=== PATIENT | female | born 1980 | race Caucasian/White ===

== ENCOUNTER 2017-12-02 03:48 | Emergency (ER) | payer BC, OTHER ==
[2017-12-02] MEDS ORDERED: NS 1000 ML 1,000 ML ONE (04:00)
[2017-12-02 04:01] VITALS: BMI 37.5
--- NOTE | 2017-12-02 04:03 | DR.GENAD ---
HPI - PCP Primary Care Physician: dr gray - HPI Comment HPI Comment: PATIENT IS WEAK, FATIGUE AND IS PERSISTENT COUGHING WITH CHEST WALL PAIN. FEVER ON AND OFF. TAKING TYLENOL AND MOTRIN FOR BODY ACHES AND FEVER. SHE IS NAUSEATED AND ANOREXIC. - Complaint/Symptoms Chief Complaint Doctors Comments: COUGH, COLD AND CONGESTION WITH FEVER AND BODYACHE THAT IS WORSE TONIGHT. DYSURIA ALSO. Chief Complaint:: patient stated she has been having body aches, cough and burning when she urinates, and fever - Nurses notes reviewed Nurses Notes Review: Yes - Source History Provided: Patient - Mode of Arrival Mode of Arrival: Ambulatory - Timing Onset of Chief Complaint: 12/01/17 Came on: Suddenly - Duration Duration: Constant Duration: Days - Severity Severity: Moderate PMH - PMH Past Medical History: Yes Past Medical History: Depression, Migraines Past Surgical History: Yes Surgical History: , Cholecystectomy, Tonsillectomy - Family History History of Family Medical Conditions: No - Social History Does patient currently use any type of tobacco product: Yes Have you used tobacco products in the last 12 months: Yes Type of Tobacco Use: Cigarettes How many years tobacco product used: 5 Does any household member use tobacco: Yes Alcohol Use: Rarely Do you use any recreational Drugs:: No Lives With: Family Lives Where: Home - infectious screening In the last 2 months have you had wt loss of >10#?: NO Have you had fever, night sweats or hemotysis?: No Have you traveled outside the country in the last 6 months?: No Isolation: Standard ROS - Review of Systems Constitutional: No Symptoms Reported Eyes: No Symptoms Reported ENTM: No Symptoms Reported Respiratoy: No Symptoms Reported Cardiovascular: No Symptoms Reported Gastrointestinal/Abdominal: Abdominal Pain, Nausea, Vomiting Genitourinary: No Symptoms Reported. negative: Dysuria, Frequency, Hematuria Neurological: Headache, Weakness, Dizziness Musculoskeletal: Muscle Pain Integumentary: No Symptoms Reported Hematologic/Lymphatic: No Symptoms Reported Endocrine: No Symptoms Reported All Other Systems: Reviewed and Negative PE - Vital Signs Vitals: Temperature 98.3 F Pulse Rate [Left Radial] 72 Pulse Rate 84 Respiratory Rate 18 Blood Pressure [Left Arm] 126/80 Blood Pressure 133/83 O2 Sat by Pulse Oximetry 99 - General Limitations: No Limitations General Appearance: Alert - Head Head Exam: Normal Inspection - Eyes Eye exam: Normal Appearance - ENT ENT Exam: Normal External Ear Exam External Ear Exam: Normal External Inspection TM/Canal Exam: Bilateral Normal Nose Exam: Normal Nose Exam Mouth Exam: Normal Inspection Throat Exam: Normal Inspection - Neck Neck Exam: Trachea Midline - Chest Chest Inspection: Symmetric Chest Wall Rise - Respiratory Respiratory Exam: Normal Lung Sounds Bilat Respiratory Exam: Bilateral Rhonchi, Lower Rhonchi - Cardiovascular Cardiovascular Exam: Regular Rate, Normal Rhythm, Normal Heart Sounds - Abdominal Exam Abdominal Exam: Normal Bowel Sounds, Soft. negative: Tenderness - Extremities Extremities Exam: Normal Inspection. negative: Edema - Back Back Exam: Normal Inspection - Neurologic Neurological Exam: Alert, Oriented X3 - Psychiatric Psychiatric Exam: Anxious - Skin Skin Exam: Normal Color MDM - Differential Diagnosis Differential Diagnosis: INFLUENZA, PNEMONIA, UTI, BRONCHITIS Course - Treatment Treatment: SEE ORDERS. - Education/Counseling Education/Counseling: Patient, Education Educated On: Treatment, Diagnosis, Needs for Follow Up ROR - Labs Reviewed Result Diagrams: 12/02/17 04:20 12/02/17 04:20 Laboratory: WBC 8.3 X10^3/uL (3.6-10.0) 12/02/17 04:20 RBC 5.03 X10^6/uL (3.5-5.4) 12/02/17 04:20 Hgb 13.5 g/dL (12.0-16.0) 12/02/17 04:20 Hct 39.0 % (36.0-47.0) 12/02/17 04:20 MCV 77.5 fL (80.0-100.0) L 12/02/17 04:20 MCH 26.8 pg (27.0-34.0) L 12/02/17 04:20 MCHC 34.5 g/dL (33.0-35.0) 12/02/17 04:20 RDW 12.7 % (11.6-16.5) 12/02/17 04:20 Plt Count 374 X10^3/uL (150.0-450.0) 12/02/17 04:20 MPV 8.4 fL (7.4-11.0) 12/02/17 04:20 Neut % 74.8 % (42.0-75.0) 12/02/17 04:20 Lymph % 12.4 % (21.0-51.0) L 12/02/17 04:20 [place] % 8.5 % (0.0-13.0) 12/02/17 04:20 Eos % 1.4 % (0.9-2.9) 12/02/17 04:20 Baso % 2.9 % (0.2-1.0) H 12/02/17 04:20 Neut # 6.2 x10^3/uL (2.2-4.8) H 12/02/17 04:20 Lymph # 1.0 X10^3/uL (1.3-2.9) L 12/02/17 04:20 [place] # 0.7 x10^3/uL (0.3-0.8) 12/02/17 04:20 Eos # 0.1 x10^3/uL (0.0-0.2) 12/02/17 04:20 Baso # 0.2 X10^3/uL (0.0-0.1) H 12/02/17 04:20 Absolute Nucleated RBC 0.0 /100WBC 12/02/17 04:20 Sodium 137 mmol/L (136-145) 12/02/17 04:20 Corrected Sodium TNP 12/02/17 04:20 Potassium 4.4 mmol/L (3.5-5.1) 12/02/17 04:20 Chloride 102 mmol/L (98-107) 12/02/17 04:20 Carbon Dioxide 22.5 mmol/L (21-32) 12/02/17 04:20 BUN 9 mg/dL (7-18) 12/02/17 04:20 Creatinine 0.76 mg/dL (0.55-1.02) 12/02/17 04:20 Est GFR (MDRD) Af Amer > 60 (>60) 12/02/17 04:20 Est GFR (MDRD) Non-Af > 60 (>60) 12/02/17 04:20 Glucose 108 mg/dL (65-99) H 12/02/17 04:20 Calcium 8.6 mg/dL (8.5-10.1) 12/02/17 04:20 Corrected Calcium TNP 12/02/17 04:20 Total Bilirubin 0.40 mg/dL (0.2-1.0) 12/02/17 04:20 AST 16 Units/L (15-37) 12/02/17 04:20 ALT 24 Units/L (12-78) 12/02/17 04:20 Alkaline Phosphatase 88 Units/L (46-116) 12/02/17 04:20 C-Reactive Protein 29.90 mg/L (0-3.0) H 12/02/17 04:20 Total Protein 7.1 g/dL (6.4-8.2) 12/02/17 04:20 Albumin 3.7 g/dL (3.4-5.0) 12/02/17 04:20 Globulin 3.4 g/dL (2.5-4.5) 12/02/17 04:20 Albumin/Globulin Ratio 1.1 Ratio (1.1-2.1) 12/02/17 04:20 Specimen Type Clean catch urine 12/02/17 04:12 Urine Color Yellow (YELLOW) 12/02/17 04:12 Urine Appearance Hazy (CLEAR) 12/02/17 04:12 Urine pH 8.0 (5.0 - 8.0) 12/02/17 04:12 Ur Specific Dexter 1.015 (1.000-1.030) 12/02/17 04:12 Urine Protein Negative (NEGATIVE) 12/02/17 04:12 Urine Glucose (UA) Negative (NEGATIVE) 12/02/17 04:12 Urine Ketones Negative (NEGATIVE) 12/02/17 04:12 Urine Occult Blood 3+ (NEGATIVE) 12/02/17 04:12 Urine Nitrite Negative (NEGATIVE) 12/02/17 04:12 Urine Bilirubin Negative (NEGATIVE) 12/02/17 04:12 Urine Urobilinogen Normal (NORMAL) 12/02/17 04:12 Ur Leukocyte Esterase 2+ (NEGATIVE) 12/02/17 04:12 Urine RBC 2-4 /HPF (NEGATIVE) 12/02/17 04:12 Urine WBC 10-15 /HPF (NEGATIVE) 12/02/17 04:12 Ur Squamous Epith Cells Few /HPF (NEGATIVE) 12/02/17 04:12 Urine Bacteria 1+ /HPF (NEGATIVE) 12/02/17 04:12 Ur Culture Indicated? Yes/culture set up 12/02/17 04:12 - Diagnosis Discharge Problem: Bronchitis, Flu, Sinusitis - Discharge Plan Condition: Stable Prescriptions: Doxycycline Hyclate 100 mg PO BID #20 tablet. Oseltamivir Phosphate [Tamiflu] 75 mg PO BID #10 cap Promethazine W/Codeine [PHENERGAN W/CODEINE 6.25mg/10mg (5mL) *] 10 ml PO Q6H PRN #120 ml PRN Reason: Cough - Follow ups/Referrals Follow ups/Referrals: RINA TEJADA [Primary Care Provider] - 3 days - Instructions Instructions: Influenza, Adult, [id number], Acute Bronchitis, [id number], Sinus Headache, [id number] Additional Instructions: RETURN TO ED IF WORSE.
[2017-12-02] MEDS ORDERED: NS 1000 ML 1,000 ML IV ONE (04:10)
[2017-12-02 04:17] LABS: BILIRUBIN,URINE NEGATIVE (NEGATIVE); BLOOD/HEMOGLOBIN,URINE 3+ (NEGATIVE); GLUCOSE, URINE NEGATIVE (NEGATIVE); KETONES,URINE NEGATIVE (NEGATIVE); LEUKOCYTE ESTERASE ,URINE 2+ (NEGATIVE); NITRITES,URINE NEGATIVE (NEGATIVE); PROTEIN,URINE NEGATIVE (NEGATIVE); UROBILINOGEN,URINE NORMAL (NORMAL)
[2017-12-02] MEDS ORDERED: ZOFRAN INJ 4 MG VIAL IVP ONE (04:17)
[2017-12-02] MEDS ORDERED: TORADOL 30 MG VIAL IVP ONE (04:17)
[2017-12-02] MEDS ORDERED: PEPCID 20 MG IV PREMIX* 20 MG/50 ML BAG IV ONE ×2 (04:17→04:22)
[2017-12-02] MEDS ORDERED: PHENERGAN W/CODEINE 6.25MG/10MG PO ONE (04:20)
[2017-12-02] MEDS ORDERED: ZOFRAN INJ 4 MG VIAL ONE (04:22)
[2017-12-02] MEDS ORDERED: TORADOL 30 MG VIAL ONE (04:22)
[2017-12-02] MEDS ORDERED: PHENERGAN W/CODEINE 6.25MG/10MG ONE (04:23)
[2017-12-02 04:32] LABS: BASOPHILS # (AUTO) 0.2 X10^3/uL (0.0-0.1); BASOPHILS % (AUTO) 2.9 % (0.2-1.0); EOSINOPHILS # (AUTO) 0.1 x10^3/uL (0.0-0.2); EOSINOPHILS % (AUTO) 1.4 % (0.9-2.9); HEMOGLOBIN 13.5 g/dL (12.0-16.0); LYMPHOCYTES % (AUTO) 12.4 % (21.0-51.0); MEAN CORPUSCULAR HEMOGLOBIN 26.8 pg (27.0-34.0); MEAN CORPUSCULAR HGB CONC 34.5 g/dL (33.0-35.0); MEAN CORPUSCULAR VOLUME 77.5 fL (80.0-100.0); MEAN PLATELET VOLUME 8.4 fL (7.4-11.0); MONOCYTES # (AUTO) 0.7 x10^3/uL (0.3-0.8); MONOCYTES % (AUTO) 8.5 % (0.0-13.0); NEUTROPHILS # (AUTO) 6.2 x10^3/uL (2.2-4.8); NEUTROPHILS % (AUTO) 74.8 % (42.0-75.0); PLATELET COUNT 374 X10^3/uL (150.0-450.0); RED BLOOD COUNT 5.03 X10^6/uL (3.5-5.4); RED CELL DISTRIBUTION WIDTH 12.7 % (11.6-16.5); WHITE BLOOD COUNT 8.3 X10^3/uL (3.6-10.0)
[2017-12-02 04:35] LABS: APPEARANCE,URINE HAZY (CLEAR); COLOR,URINE YELLOW (YELLOW); SQUAMOUS EPITHELIAL CELL,UR FEW /HPF (NEGATIVE)
[2017-12-02 04:36] LABS: BACTERIA,URINE 1+ /HPF (NEGATIVE)
[2017-12-02 04:37] LABS: ALANINE AMINOTRANSFERASE 24 Units/L (12-78); ALBUMIN 3.7 g/dL (3.4-5.0); ALKALINE PHOSPHATASE 88 Units/L (46-116); ASPARTATE AMINO TRANSFERASE 16 Units/L (15-37); BLOOD UREA NITROGEN 9 mg/dL (7-18); CALCIUM 8.6 mg/dL (8.5-10.1); CARBON DIOXIDE 22.5 mmol/L (21-32); CHLORIDE 102 mmol/L (98-107); CREATININE 0.76 mg/dL (0.55-1.02); SODIUM 137 mmol/L (136-145); TOTAL PROTEIN 7.1 g/dL (6.4-8.2); eGFR BLACK RACES > 60 (>60); eGFR NON BLACK RACES > 60 (>60)
--- NOTE | 2017-12-02 05:35 | RAD ---
Chest, PA and lateral Indication: Fever, body aches Comparison: 10/19/2012 Findings: The cardiac silhouette is unremarkable. The lungs are clear without focal infiltrates or pl eural effusion. Impression: No acute chest process. Reported By:
[2017-12-02 05:54] VITALS: BP 126/80
== END 2017-12-02 05:51 | disposition home or self-care (01) ==
LOC: ER 03:48
DX: J11.1 Influenza due to unidentified influenza virus with other respiratory manifestations (principal); J32.9 Chronic sinusitis, unspecified
CPT/HCPCS: 36415; 71046; 80053; 81001; 85025; 86140; 87086; 96365; 96374; 96375; 99282; 99283; A4222; S0028; J1885; J2405

== ENCOUNTER 2017-12-05 12:05 | Inpatient (IN) ==
--- NOTE | 2017-12-05 12:50 | DR.H&P ---
H&P - History & Physical for Day of: H&P Date: 12/05/17 - Chief Complaint Chief Complaint: FEVER, CCC, BODY ACHES - Allergies Allergies/Adverse Reactions: Allergies Allergy/AdvReac Type Severity Reaction Status Date / Time No Known Drug Allergies Allergy Verified 12/02/17 04:06 - History of Present Illness History of Present Illness: 37 WF DIRECT ADMIT FROM DR PERALES OFFICE WITH CO FLU LIKE ILLNESS FOR 3 DAYS, PT STATES SHE WAS SEEN IN ER EARLIER THIS WEEK, STARTED ON DOXY BID. PT CONTINUES TO CO FEVER, BODYACHES SHORTNESS OF BREATH. PT TESTED POSTIVE FLU A. PLAN TO ADMIT FOR EVLAUATION AND TREATMENT OF RESP ILLNESS. PLAN TO OBTAIN ATBX, RESP THERAPY, SUPPLEMENTAL O2 - Past Medical History Past Medical History: Depression, Migraines - Past Surgical History Surgical History: , Cholecystectomy, Tonsillectomy - Social History Does patient currently use any type of tobacco product: Yes Have you used tobacco products in the last 12 months: Yes Type of Tobacco Use: Cigarettes Does any household member use tobacco: No Alcohol Use: None Drug Use: None - Review of Systems Constitutional: Fever, Chills, Weakness, Malaise Eyes: No Symptoms Reported ENT: No Symptoms Reported Respiratory: Cough, Shortness of Breath, Wheezing Cardiovascular: No Symptoms Reported Gastrointestinal: No Symptoms Reported Genitourinary: No Symptoms Reported Musculoskeletal: No Symptoms Reported Skin: No Symptoms Reported Neurological: No Symptoms Reported - Physical Exam Vital Signs: Blood Pressure [Left Arm] 126/80 Blood Pressure 126/80 Oriented: Normal Eyes: Normal Ear: Normal Nose: Normal Throat: Normal Respiratory: Rhonchi Throughout, Wheezes Throughout Cardiovascular: Tachycardia, Edema : Normal Auscultation: Bowel Sounds: Normal Palpation: Normal Tenderness: Normal Skin: Normal Musculoskeletal: Normal Psychiatric: Anxiety Mood Description: Calm Affect: Anxious Speech Pattern: Clear, Appropriate - Assessment/Plan (1) Bronchitis Status: Acute Plan: ADMIT, RESP THERAPY, IV ABTX. BLOOD AND SPUTUM CULTURES, SUPPLEMENTAL O2. CHEST XRAY, TAMIFLU (2) Flu Status: Acute
[2017-12-05] MEDS ORDERED: NS 1/2 1000 ML IV 1,000 ML IV ONE (14:32)
[2017-12-05] MEDS ORDERED: SALINE 3% 15 ML NEB TX NEB ONE (14:46)
[2017-12-05] MEDS: ROBITUSSIN DM PO SCH ×3 (14:50→20:31)
[2017-12-05] MEDS: NS 1/2 1000 ML IV 1,000 ML IV SCH (14:51)
[2017-12-05] MEDS: SOLU-Medrol 125 MG VIAL IVP SCH ×2 (14:51→21:07)
[2017-12-05 15:02] LABS: BASOPHILS # (AUTO) 0.1 X10^3/uL (0.0-0.1); EOSINOPHILS # (AUTO) 0.2 x10^3/uL (0.0-0.2); EOSINOPHILS % (AUTO) 2.7 % (0.9-2.9); HEMATOCRIT 37.9 % (36.0-47.0); HEMOGLOBIN 12.9 g/dL (12.0-16.0); LYMPHOCYTES # (AUTO) 2.9 X10^3/uL (1.3-2.9); LYMPHOCYTES % (AUTO) 50.9 % (21.0-51.0); MEAN CORPUSCULAR HEMOGLOBIN 26.4 pg (27.0-34.0); MEAN CORPUSCULAR HGB CONC 34.1 g/dL (33.0-35.0); MEAN CORPUSCULAR VOLUME 77.6 fL (80.0-100.0); MEAN PLATELET VOLUME 8.2 fL (7.4-11.0); MONOCYTES # (AUTO) 0.5 x10^3/uL (0.3-0.8); MONOCYTES % (AUTO) 8.1 % (0.0-13.0); NEUTROPHILS # (AUTO) 2.2 x10^3/uL (2.2-4.8); NEUTROPHILS % (AUTO) 37.3 % (42.0-75.0); PLATELET COUNT 369 X10^3/uL (150.0-450.0); RED BLOOD COUNT 4.89 X10^6/uL (3.5-5.4); WHITE BLOOD COUNT 5.8 X10^3/uL (3.6-10.0)
[2017-12-05 15:16] LABS: ALANINE AMINOTRANSFERASE 62 Units/L (12-78); ALBUMIN 3.4 g/dL (3.4-5.0); ALKALINE PHOSPHATASE 86 Units/L (46-116); ASPARTATE AMINO TRANSFERASE 24 Units/L (15-37); BLOOD UREA NITROGEN 9 mg/dL (7-18); CALCIUM 8.7 mg/dL (8.5-10.1); CARBON DIOXIDE 25.4 mmol/L (21-32); CHLORIDE 105 mmol/L (98-107); CREATININE 0.69 mg/dL (0.55-1.02); SODIUM 141 mmol/L (136-145); TOTAL PROTEIN 7.1 g/dL (6.4-8.2); eGFR NON BLACK RACES > 60 (>60)
[2017-12-05] MEDS ORDERED: PREVNAR 13 IM ONE (15:31)
[2017-12-05] MEDS: ROCEPHIN VIAL 1 GRAM 1 G in NS 100 ML IV + SPIKE MINIBAG* 100 ML IV SCH (15:35)
--- NOTE | 2017-12-05 15:51 | RAD ---
Examination: Chest, PA and lateral views History: Irregular heart rate Comparison reference 12/02/2017 Findings: Continued normal heart size with clear lungs and pleural spaces. There is a metallic electr onic device projected over the left anterior chest wall. Impression: No significant change or acute abnormality demonstrated. Reported By:
[2017-12-05] MEDS: ZITHROMAX INJ 500 MG VIAL 500 MG in NS 250 ML IV 250 ML IV SCH (16:22)
[2017-12-05] MEDS: DUONEB 0.5 MG/3 MG NEB SCH ×2 (16:24→20:26)
[2017-12-05] MEDS: TORADOL 30 MG VIAL IVP SCH (19:32)
[2017-12-05] MEDS: TAMIFLU PO SCH (20:32)
[2017-12-05] MEDS: PULMICORT NEB TX 0.5 MG NEB SCH (20:32)
[2017-12-05] MEDS: RESTORIL CAP 30 MG PO PRN (21:24)
[2017-12-05] MEDS: TUSSIONEX PENNKINETIC SUSP PO PRN (21:24)
[2017-12-06] MEDS: DUONEB 0.5 MG/3 MG NEB SCH ×6 (01:42→20:49)
[2017-12-06] MEDS: TORADOL 30 MG VIAL IVP SCH ×2 (01:45→08:42)
[2017-12-06] MEDS: SOLU-Medrol 125 MG VIAL IVP SCH ×3 (05:19→21:05)
[2017-12-06] MEDS: NS 1/2 1000 ML IV 1,000 ML IV SCH ×3 (05:19→18:19)
[2017-12-06 05:20] LABS: BASOPHILS % (AUTO) 0.1 % (0.2-1.0); HEMATOCRIT 37.4 % (36.0-47.0); HEMOGLOBIN 12.7 g/dL (12.0-16.0); LYMPHOCYTES # (AUTO) 1.1 X10^3/uL (1.3-2.9); LYMPHOCYTES % (AUTO) 12.6 % (21.0-51.0); MEAN CORPUSCULAR HEMOGLOBIN 26.7 pg (27.0-34.0); MEAN CORPUSCULAR HGB CONC 33.9 g/dL (33.0-35.0); MEAN CORPUSCULAR VOLUME 78.8 fL (80.0-100.0); MEAN PLATELET VOLUME 8.6 fL (7.4-11.0); MONOCYTES # (AUTO) 0.1 x10^3/uL (0.3-0.8); MONOCYTES % (AUTO) 1.5 % (0.0-13.0); NEUTROPHILS # (AUTO) 7.3 x10^3/uL (2.2-4.8); NEUTROPHILS % (AUTO) 85.8 % (42.0-75.0); PLATELET COUNT 350 X10^3/uL (150.0-450.0); RED BLOOD COUNT 4.74 X10^6/uL (3.5-5.4); RED CELL DISTRIBUTION WIDTH 12.7 % (11.6-16.5); WHITE BLOOD COUNT 8.5 X10^3/uL (3.6-10.0)
[2017-12-06 05:32] LABS: ALANINE AMINOTRANSFERASE 51 Units/L (12-78); ALBUMIN 3.2 g/dL (3.4-5.0); ALKALINE PHOSPHATASE 88 Units/L (46-116); ASPARTATE AMINO TRANSFERASE 13 Units/L (15-37); BLOOD UREA NITROGEN 7 mg/dL (7-18); CALCIUM 8.7 mg/dL (8.5-10.1); CARBON DIOXIDE 16.4 mmol/L (21-32); CHLORIDE 105 mmol/L (98-107); COR CA(FOR HYPOALB) 9.3 mg/dL (8.5-10.1); COR NA(FOR HYPERGLY) 142 mmol/L (136-145); CREATININE 0.92 mg/dL (0.55-1.02); SODIUM 138 mmol/L (136-145); eGFR NON BLACK RACES > 60 (>60)
[2017-12-06] MEDS: PULMICORT NEB TX 0.5 MG NEB SCH ×2 (08:26→20:49)
[2017-12-06] MEDS: ROCEPHIN VIAL 1 GRAM 1 G in NS 100 ML IV + SPIKE MINIBAG* 100 ML IV SCH (08:40)
[2017-12-06] MEDS: ZITHROMAX INJ 500 MG VIAL 500 MG in NS 250 ML IV 250 ML IV SCH (08:41)
[2017-12-06] MEDS: TAMIFLU PO SCH ×2 (08:43→20:57)
[2017-12-06] MEDS: ROBITUSSIN DM PO SCH ×4 (08:43→20:57)
[2017-12-06 10:06] VITALS: BMI 39.4
[2017-12-06] MEDS: TUSSIONEX PENNKINETIC SUSP PO PRN ×2 (10:25→20:58)
[2017-12-06] MEDS: TORADOL 30 MG VIAL IVP PRN ×2 (15:04→20:57)
[2017-12-06] MEDS ORDERED: NS 1/2 1000 ML IV 1,000 ML IV ONE (15:06)
[2017-12-06] MEDS ORDERED: PHENERGAN TAB 25 MG PO PRN (18:13)
[2017-12-06] MEDS ORDERED: PATIENT'S HOME MEDICATION (Cholecalciferol (Vitamin D3) [Vitamin D3] 5,000 UNIT) PO SCH (18:15)
--- NOTE | 2017-12-06 20:18 | PCM.PROG ---
Progress Note - Progress Note for Day of Date: 12/06/17 - Subjective Subjective: WAS ADMITTED FOR ACUTE BRONCHITIS AND INFLUENZA. TODAY, SHE IS ALERT AND ORIENTED, LYING IN BED ON MORNING ROUNDS. TODAY, SHE CONTINUES WITH SHORTNESS OF BREATH, GENERALIZED ACHING, AND PERSISTANT COUGH. ON EXAMINATION, HEART IS REGULAR IN RATE AND RHYTHM. LUNG SOUNDS ARE DIMINISHED THROUGHOUT. SHE IS UTILIZING OXYGEN VIA NASAL CANNULA AT 2L/MIN. ABODOMEN IS ROUND, SOFT, AND NON-TENDER WITH NORMAL BOWEL SOUNDS NOTED TO ALL QUADRANTS. THERE IS NORMAL RANGE OF MOTION NOTED TO ALL EXTREMITIES. VITAL SIGNS THIS MORNING ARE 97.3-90-20-98%-159/74. SHE REMAINS HEMODYNAMICALLY STABLE TODAY. TODAY, WE WILL CONTINUE WITH IV ANTIBIOTICS AND TAMIFLU BID. WE WILL CONTINUE TO HYDRATE. WE PLAN TO FOLLOW UP WITH AM LABS AND CHEST XRAY AND CONTINUE TO MONITOR PATIENT. - Past Medical Family Social History Past Med/Fam/Surg Hx: No changes since H&P Allergies: Allergies No Known Drug Allergies Allergy (Verified 12/02/17 04:06) - Review of Systems ROS: No change since H&P - Vital Signs and I&O's Vital Signs: Temperature 97.5 F Pulse Rate [Left Brachial] 87 Pulse Rate 77 Respiratory Rate 20 Blood Pressure [Left Arm] 116/55 Blood Pressure 126/80 O2 Sat by Pulse Oximetry 96 Intake and Output: Intake & Output 12/04/17 12/05/17 12/06/17 12/07/17 11:59 11:59 11:59 11:59 Intake Total 835 990 Output Total 900 Balance -65 990 - Physical Exam Oriented: Normal Eyes: Normal Ear: Normal Nose: Normal Throat: Normal Respiratory: Generalized, Diminished Cardiovascular: Edema : Normal Auscultation: Bowel Sounds: Normal Palpation: Normal Tenderness: Normal Skin: Normal Musculoskeletal: Normal Psychiatric: Anxiety Mood Description: Calm Affect: Anxious Speech Pattern: Clear, Appropriate - Laboratory and Diagnostics Result Diagrams: 12/06/17 04:40 12/06/17 04:40 Labs: 12/05/17 16:01 Sputum - Expectorated Sputum Sputum Culture - Preliminary 12/05/17 16:01 Sputum - Expectorated Sputum - Final Laboratory WBC 8.5 X10^3/uL (3.6-10.0) 12/06/17 04:40 RBC 4.74 X10^6/uL (3.5-5.4) 12/06/17 04:40 Hgb 12.7 g/dL (12.0-16.0) 12/06/17 04:40 Hct 37.4 % (36.0-47.0) 12/06/17 04:40 MCV 78.8 fL (80.0-100.0) L 12/06/17 04:40 MCH 26.7 pg (27.0-34.0) L 12/06/17 04:40 MCHC 33.9 g/dL (33.0-35.0) 12/06/17 04:40 RDW 12.7 % (11.6-16.5) 12/06/17 04:40 Plt Count 350 X10^3/uL (150.0-450.0) 12/06/17 04:40 MPV 8.6 fL (7.4-11.0) 12/06/17 04:40 Neut % 85.8 % (42.0-75.0) H 12/06/17 04:40 Lymph % 12.6 % (21.0-51.0) L 12/06/17 04:40 [place] % 1.5 % (0.0-13.0) 12/06/17 04:40 Eos % 0.0 % (0.9-2.9) L 12/06/17 04:40 Baso % 0.1 % (0.2-1.0) L 12/06/17 04:40 Neut # 7.3 x10^3/uL (2.2-4.8) H 12/06/17 04:40 Lymph # 1.1 X10^3/uL (1.3-2.9) L 12/06/17 04:40 [place] # 0.1 x10^3/uL (0.3-0.8) L 12/06/17 04:40 Eos # 0.0 x10^3/uL (0.0-0.2) 12/06/17 04:40 Baso # 0.0 X10^3/uL (0.0-0.1) 12/06/17 04:40 Absolute Nucleated RBC 0.0 /100WBC 12/06/17 04:40 Sodium 138 mmol/L (136-145) 12/06/17 04:40 Corrected Sodium 142 mmol/L (136-145) 12/06/17 04:40 Potassium 4.0 mmol/L (3.5-5.1) 12/06/17 04:40 Chloride 105 mmol/L (98-107) 12/06/17 04:40 Carbon Dioxide 16.4 mmol/L (21-32) L 12/06/17 04:40 BUN 7 mg/dL (7-18) 12/06/17 04:40 Creatinine 0.92 mg/dL (0.55-1.02) 12/06/17 04:40 Est GFR (MDRD) Af Amer > 60 (>60) 12/06/17 04:40 Est GFR (MDRD) Non-Af > 60 (>60) 12/06/17 04:40 Glucose 256 mg/dL (65-99) H 12/06/17 04:40 Calcium 8.7 mg/dL (8.5-10.1) 12/06/17 04:40 Corrected Calcium 9.3 mg/dL (8.5-10.1) 12/06/17 04:40 Total Bilirubin 0.20 mg/dL (0.2-1.0) 12/06/17 04:40 AST 13 Units/L (15-37) L 12/06/17 04:40 ALT 51 Units/L (12-78) 12/06/17 04:40 Alkaline Phosphatase 88 Units/L (46-116) 12/06/17 04:40 Total Protein 7.0 g/dL (6.4-8.2) 12/06/17 04:40 Albumin 3.2 g/dL (3.4-5.0) L 12/06/17 04:40 Globulin 3.8 g/dL (2.5-4.5) 12/06/17 04:40 Albumin/Globulin Ratio 0.8 Ratio (1.1-2.1) L 12/06/17 04:40 - Plan (1) Bronchitis Status: Acute Plan: CONTINUE IV ANTIBIOTICS AND NEB TX, CONTINUE TO MONITOR LABS AND CHEST XAY (2) Flu Status: Acute Plan: CONTINUE TAMIFLU BID, CONTINUE TO MONITOR
[2017-12-06] MEDS: INDERAL TAB 10 MG PO SCH (20:56)
[2017-12-06] MEDS: LYRICA CAP 100 MG PO SCH (20:56)
[2017-12-06] MEDS: CYMBALTA PO SCH (20:57)
[2017-12-06] MEDS: RESTORIL CAP 30 MG PO PRN (20:57)
[2017-12-06] MEDS ORDERED: PROPRANOLOL HCL PO SCH (21:00)
[2017-12-07] MEDS: DUONEB 0.5 MG/3 MG NEB SCH ×5 (01:29→20:31)
[2017-12-07] MEDS: TORADOL 30 MG VIAL IVP PRN ×4 (02:43→23:00)
[2017-12-07] MEDS: SOLU-Medrol 125 MG VIAL IVP SCH ×3 (05:46→21:52)
[2017-12-07 06:44] LABS: BASOPHILS % (AUTO) 0.2 % (0.2-1.0); HEMATOCRIT 37.2 % (36.0-47.0); HEMOGLOBIN 12.3 g/dL (12.0-16.0); LYMPHOCYTES # (AUTO) 2.5 X10^3/uL (1.3-2.9); MEAN CORPUSCULAR HEMOGLOBIN 25.9 pg (27.0-34.0); MEAN CORPUSCULAR HGB CONC 32.9 g/dL (33.0-35.0); MEAN CORPUSCULAR VOLUME 78.7 fL (80.0-100.0); MONOCYTES # (AUTO) 0.5 x10^3/uL (0.3-0.8); MONOCYTES % (AUTO) 2.5 % (0.0-13.0); NEUTROPHILS # (AUTO) 17.7 x10^3/uL (2.2-4.8); NEUTROPHILS % (AUTO) 85.3 % (42.0-75.0); PLATELET COUNT 419 X10^3/uL (150.0-450.0); RED BLOOD COUNT 4.73 X10^6/uL (3.5-5.4); RED CELL DISTRIBUTION WIDTH 13.2 % (11.6-16.5); WHITE BLOOD COUNT 20.7 X10^3/uL (3.6-10.0)
[2017-12-07 06:56] LABS: ALANINE AMINOTRANSFERASE 42 Units/L (12-78); ALBUMIN 3.2 g/dL (3.4-5.0); ALKALINE PHOSPHATASE 81 Units/L (46-116); ASPARTATE AMINO TRANSFERASE 10 Units/L (15-37); BLOOD UREA NITROGEN 10 mg/dL (7-18); CALCIUM 8.3 mg/dL (8.5-10.1); CARBON DIOXIDE 18.9 mmol/L (21-32); CHLORIDE 104 mmol/L (98-107); COR CA(FOR HYPOALB) 8.9 mg/dL (8.5-10.1); COR NA(FOR HYPERGLY) 139 mmol/L (136-145); CREATININE 0.74 mg/dL (0.55-1.02); SODIUM 137 mmol/L (136-145); eGFR NON BLACK RACES > 60 (>60)
[2017-12-07 07:03] LABS: HEMOGLOBIN A1C 5.8 % (4.5-6.2)
[2017-12-07 08:01] LABS: PLATELET MORPHOLOGY COMMENT NORMAL (NORMAL)
[2017-12-07] MEDS: PULMICORT NEB TX 0.5 MG NEB SCH ×2 (09:25→20:30)
[2017-12-07] MEDS ORDERED: NS 1/2 1000 ML IV 1,000 ML IV ONE (09:29)
[2017-12-07] MEDS: INDERAL TAB 10 MG PO SCH ×2 (09:32→21:52)
[2017-12-07] MEDS: LYRICA CAP 100 MG PO SCH ×2 (09:32→21:52)
[2017-12-07] MEDS: TAMIFLU PO SCH ×2 (09:32→21:52)
[2017-12-07] MEDS: ROCEPHIN VIAL 1 GRAM 1 G in NS 100 ML IV + SPIKE MINIBAG* 100 ML IV SCH (09:33)
[2017-12-07] MEDS: ZITHROMAX INJ 500 MG VIAL 500 MG in NS 250 ML IV 250 ML IV SCH (09:33)
[2017-12-07] MEDS: NS 1/2 1000 ML IV 1,000 ML IV SCH ×2 (09:34→22:59)
[2017-12-07] MEDS: ROBITUSSIN DM PO SCH ×4 (09:35→21:53)
[2017-12-07] MEDS: CYMBALTA PO SCH (09:37)
[2017-12-07] MEDS: RESTORIL CAP 30 MG PO PRN (21:53)
[2017-12-08] MEDS: DUONEB 0.5 MG/3 MG NEB SCH ×6 (00:57→21:35)
[2017-12-08] MEDS ORDERED: AYR NASAL DROPS PRN (01:18)
[2017-12-08 05:47] LABS: BASOPHILS % (AUTO) 0.1 % (0.2-1.0); HEMATOCRIT 36.1 % (36.0-47.0); HEMOGLOBIN 12.2 g/dL (12.0-16.0); MEAN CORPUSCULAR HEMOGLOBIN 26.2 pg (27.0-34.0); MEAN CORPUSCULAR HGB CONC 33.7 g/dL (33.0-35.0); MEAN CORPUSCULAR VOLUME 77.8 fL (80.0-100.0); MEAN PLATELET VOLUME 8.6 fL (7.4-11.0); MONOCYTES # (AUTO) 0.4 x10^3/uL (0.3-0.8); MONOCYTES % (AUTO) 2.2 % (0.0-13.0); NEUTROPHILS # (AUTO) 16.5 x10^3/uL (2.2-4.8); NEUTROPHILS % (AUTO) 82.7 % (42.0-75.0); PLATELET COUNT 427 X10^3/uL (150.0-450.0); RED BLOOD COUNT 4.63 X10^6/uL (3.5-5.4); RED CELL DISTRIBUTION WIDTH 13.1 % (11.6-16.5)
[2017-12-08 06:03] LABS: ALANINE AMINOTRANSFERASE 36 Units/L (12-78); ALBUMIN 3.1 g/dL (3.4-5.0); ALKALINE PHOSPHATASE 70 Units/L (46-116); ASPARTATE AMINO TRANSFERASE 11 Units/L (15-37); BLOOD UREA NITROGEN 13 mg/dL (7-18); CALCIUM 8.3 mg/dL (8.5-10.1); CARBON DIOXIDE 24.3 mmol/L (21-32); CHLORIDE 104 mmol/L (98-107); COR NA(FOR HYPERGLY) 140 mmol/L (136-145); CREATININE 0.85 mg/dL (0.55-1.02); SODIUM 139 mmol/L (136-145); TOTAL PROTEIN 6.5 g/dL (6.4-8.2); eGFR NON BLACK RACES > 60 (>60)
[2017-12-08] MEDS: TORADOL 30 MG VIAL IVP PRN ×3 (06:10→23:32)
[2017-12-08] MEDS: SOLU-Medrol 125 MG VIAL IVP SCH (06:10)
[2017-12-08] MEDS: PULMICORT NEB TX 0.5 MG NEB SCH ×2 (09:30→21:35)
[2017-12-08] MEDS: CYMBALTA PO SCH (09:30)
[2017-12-08] MEDS: INDERAL TAB 10 MG PO SCH ×2 (09:31→20:55)
[2017-12-08] MEDS: TAMIFLU PO SCH ×2 (09:31→20:56)
[2017-12-08] MEDS: LYRICA CAP 100 MG PO SCH ×2 (09:31→20:56)
[2017-12-08] MEDS: ROCEPHIN VIAL 1 GRAM 1 G in NS 100 ML IV + SPIKE MINIBAG* 100 ML IV SCH (09:32)
[2017-12-08] MEDS: ROBITUSSIN DM PO SCH ×4 (09:32→21:06)
[2017-12-08] MEDS: TUSSIONEX PENNKINETIC SUSP PO PRN ×2 (11:57→23:32)
[2017-12-08] MEDS: MUCOMYST 20% 200 MG/ML NEB SCH ×3 (13:30→21:35)
--- NOTE | 2017-12-08 13:39 | PCM.PROG ---
Progress Note - Progress Note for Day of Date: 12/07/17 - Subjective Subjective: WAS ADMITTED FOR ACUTE BRONCHITIS AND INFLUENZA A. TODAY , SHE IS ALERT AND ORIENTED, LYING IN BED ON MORNING ROUNDS. SHE CONTINUES WITH COMPLAINTS OF PRODUCTIVE COUGH, CONGESTION, AND GENERALIZED WEAKNESS AND ACHING. HEART IS NORMAL IN RATE AND RHYTHM. BILATERAL LUNGS ARE NOTED WITH SCATTERED WHEEZING. SHE IS CURRENTLY UTILIZING OXYGEN VIA NASAL CANNULA AT 2L/ MIN. ABDOMEN IS ROUND, SOFT, AND NON-TENDER WITH NORMAL BOWEL SOUNDS NOTED IN ALL QUADRANTS. NORMAL RANGE OF MOTION NOTED TO ALL EXTREMITIES. VITALS THIS MORNING ARE 97.7-72-20-99%-171/74. ABNORMAL LAB VALUES INCLUDE THE FOLLOWING: WBC INCREASED TO 20.7, CARBON DIOXIDE 18.9, GLUCOSE 203, CALCIUM 8.3, AST 10, ALBUMIN 3.2. SPUTUM AND BLOOD CULTURES ARE PENDING. SHE IS CURRENTLY RECEIVING ROCEPHIN 1GM IV DAILY AND TAMIFLU 75MG PO BID. WE WILL CONTINUE CURRENT PLAN OF CARE TODAY. OTHERWISE, WE PLAN TO FOLLOW UP WITH AM LABS AND CONTINUE TO MONITOR PATIENT. - Past Medical Family Social History Past Med/Fam/Surg Hx: No changes since H&P Allergies: Allergies No Known Drug Allergies Allergy (Verified 12/02/17 04:06) - Review of Systems ROS: No change since H&P - Vital Signs and I&O's Vital Signs: Temperature 97.7 F Pulse Rate [Left Brachial] 64 Pulse Rate 77 Respiratory Rate 20 Blood Pressure [Left Arm] 150/80 Blood Pressure 126/80 O2 Sat by Pulse Oximetry 97 Intake and Output: Intake & Output 12/06/17 12/07/17 12/08/17 12/09/17 11:59 11:59 11:59 11:59 Intake Total 835 1630 1918 Output Total 900 Balance -65 1630 1918 - Physical Exam Oriented: Normal Eyes: Normal Ear: Normal Nose: Normal Throat: Normal Respiratory: Generalized, Wheezes Cardiovascular: Edema : Normal Auscultation: Bowel Sounds: Normal Palpation: Normal Tenderness: Normal Skin: Normal Musculoskeletal: Normal Psychiatric: Anxiety Mood Description: Calm Affect: Anxious Speech Pattern: Clear, Appropriate - Laboratory and Diagnostics Result Diagrams: 12/08/17 04:55 12/08/17 04:55 Labs: 12/05/17 16:01 Sputum - Expectorated Sputum Sputum Culture - Final 12/05/17 16:01 Sputum - Expectorated Sputum - Final 12/05/17 14:47 Blood Blood Culture - Preliminary 12/05/17 14:45 Blood Blood Culture - Preliminary Laboratory WBC 20.0 X10^3/uL (3.6-10.0) H 12/08/17 04:55 RBC 4.63 X10^6/uL (3.5-5.4) 12/08/17 04:55 Hgb 12.2 g/dL (12.0-16.0) 12/08/17 04:55 Hct 36.1 % (36.0-47.0) 12/08/17 04:55 MCV 77.8 fL (80.0-100.0) L 12/08/17 04:55 MCH 26.2 pg (27.0-34.0) L 12/08/17 04:55 MCHC 33.7 g/dL (33.0-35.0) 12/08/17 04:55 RDW 13.1 % (11.6-16.5) 12/08/17 04:55 Plt Count 427 X10^3/uL (150.0-450.0) 12/08/17 04:55 Plt Count Comment Adequate (ADEQUATE) 12/07/17 05:25 MPV 8.6 fL (7.4-11.0) 12/08/17 04:55 Neut % 82.7 % (42.0-75.0) H 12/08/17 04:55 Lymph % 15.0 % (21.0-51.0) L 12/08/17 04:55 [place] % 2.2 % (0.0-13.0) 12/08/17 04:55 Eos % 0.0 % (0.9-2.9) L 12/08/17 04:55 Baso % 0.1 % (0.2-1.0) L 12/08/17 04:55 Neut # 16.5 x10^3/uL (2.2-4.8) H 12/08/17 04:55 Lymph # 3.0 X10^3/uL (1.3-2.9) H 12/08/17 04:55 [place] # 0.4 x10^3/uL (0.3-0.8) 12/08/17 04:55 Eos # 0.0 x10^3/uL (0.0-0.2) 12/08/17 04:55 Baso # 0.0 X10^3/uL (0.0-0.1) 12/08/17 04:55 Absolute Nucleated RBC 0.0 /100WBC 12/08/17 04:55 Plt Morphology Comment Normal (NORMAL) 12/07/17 05:25 RBC Morphology Normal (NORMAL) 12/07/17 05:25 Sodium 139 mmol/L (136-145) 12/08/17 04:55 Corrected Sodium 140 mmol/L (136-145) 12/08/17 04:55 Potassium 3.8 mmol/L (3.5-5.1) 12/08/17 04:55 Chloride 104 mmol/L (98-107) 12/08/17 04:55 Carbon Dioxide 24.3 mmol/L (21-32) 12/08/17 04:55 BUN 13 mg/dL (7-18) 12/08/17 04:55 Creatinine 0.85 mg/dL (0.55-1.02) 12/08/17 04:55 Est GFR (MDRD) Af Amer > 60 (>60) 12/08/17 04:55 Est GFR (MDRD) Non-Af > 60 (>60) 12/08/17 04:55 Glucose 156 mg/dL (65-99) H 12/08/17 04:55 Hemoglobin A1c 5.8 % (4.5-6.2) 12/07/17 05:25 Calcium 8.3 mg/dL (8.5-10.1) L 12/08/17 04:55 Corrected Calcium 9.0 mg/dL (8.5-10.1) 12/08/17 04:55 Total Bilirubin 0.20 mg/dL (0.2-1.0) 12/08/17 04:55 AST 11 Units/L (15-37) L 12/08/17 04:55 ALT 36 Units/L (12-78) 12/08/17 04:55 Alkaline Phosphatase 70 Units/L (46-116) 12/08/17 04:55 Total Protein 6.5 g/dL (6.4-8.2) 12/08/17 04:55 Albumin 3.1 g/dL (3.4-5.0) L 12/08/17 04:55 Globulin 3.4 g/dL (2.5-4.5) 12/08/17 04:55 Albumin/Globulin Ratio 0.9 Ratio (1.1-2.1) L 12/08/17 04:55 - Plan (1) Bronchitis Status: Acute Plan: CONTINUE IV ANTIBIOTICS AND NEB TX, CONTINUE TO MONITOR LABS AND CHEST XAY (2) Flu Status: Acute Plan: CONTINUE TAMIFLU BID, CONTINUE TO MONITOR
[2017-12-08] MEDS: NS 1/2 500 ML IV 500 ML IV SCH ×2 (15:22→23:02)
[2017-12-08] MEDS: NS 1/2 1000 ML IV 1,000 ML IV SCH (16:51)
[2017-12-08] MEDS ORDERED: ROBITUSSIN (PLAIN) PO SCH (21:00)
[2017-12-08] MEDS: RESTORIL CAP 30 MG PO PRN (23:32)
[2017-12-09] MEDS: DUONEB 0.5 MG/3 MG NEB SCH ×7 (00:53→21:33)
[2017-12-09] MEDS: NS 1/2 1000 ML IV 1,000 ML IV SCH ×2 (03:16→16:30)
[2017-12-09 06:11] LABS: BASOPHILS # (AUTO) 0.1 X10^3/uL (0.0-0.1); BASOPHILS % (AUTO) 0.5 % (0.2-1.0); HEMATOCRIT 36.1 % (36.0-47.0); HEMOGLOBIN 12.2 g/dL (12.0-16.0); LYMPHOCYTES # (AUTO) 4.8 X10^3/uL (1.3-2.9); LYMPHOCYTES % (AUTO) 24.9 % (21.0-51.0); MEAN CORPUSCULAR HEMOGLOBIN 26.3 pg (27.0-34.0); MEAN CORPUSCULAR HGB CONC 33.9 g/dL (33.0-35.0); MEAN CORPUSCULAR VOLUME 77.6 fL (80.0-100.0); MEAN PLATELET VOLUME 8.2 fL (7.4-11.0); MONOCYTES % (AUTO) 5.3 % (0.0-13.0); NEUTROPHILS # (AUTO) 13.3 x10^3/uL (2.2-4.8); NEUTROPHILS % (AUTO) 69.3 % (42.0-75.0); PLATELET COUNT 397 X10^3/uL (150.0-450.0); RED BLOOD COUNT 4.65 X10^6/uL (3.5-5.4); RED CELL DISTRIBUTION WIDTH 13.2 % (11.6-16.5); WHITE BLOOD COUNT 19.2 X10^3/uL (3.6-10.0)
[2017-12-09 06:32] LABS: ALANINE AMINOTRANSFERASE 30 Units/L (12-78); ALBUMIN 2.7 g/dL (3.4-5.0); ALKALINE PHOSPHATASE 68 Units/L (46-116); ASPARTATE AMINO TRANSFERASE 10 Units/L (15-37); BLOOD UREA NITROGEN 13 mg/dL (7-18); CALCIUM 7.7 mg/dL (8.5-10.1); CARBON DIOXIDE 26.2 mmol/L (21-32); CHLORIDE 105 mmol/L (98-107); COR CA(FOR HYPOALB) 8.7 mg/dL (8.5-10.1); COR NA(FOR HYPERGLY) 141 mmol/L (136-145); CREATININE 0.66 mg/dL (0.55-1.02); SODIUM 140 mmol/L (136-145); eGFR NON BLACK RACES > 60 (>60)
[2017-12-09] MEDS ORDERED: POTASSIUM CHL 40 MEQ/NS 0.45% 500 ML IV PRN (06:38)
[2017-12-09] MEDS ORDERED: MAGNESIUM SULFATE 1 GRAM/100 mL PREMIX 1 GM/100 ML BAG IV PRN (06:38)
[2017-12-09] MEDS ORDERED: MAG-OX TAB PO PRN (06:38)
[2017-12-09] MEDS ORDERED: POTASSIUM CHL 60 MEQ/NS 0.45% 500 ML IV PRN (06:38)
[2017-12-09] MEDS ORDERED: K-LYTE EFFERVESCENT PO PRN (06:38)
[2017-12-09] MEDS ORDERED: POTASSIUM CHLORIDE LIQ 20 MEQ UDC PO PRN (06:38)
[2017-12-09] MEDS ORDERED: K-RIDER 10 MEQ/NS 100 ML 10 MEQ/100 ML BAG IV PRN (06:38)
[2017-12-09 06:55] LABS: PLATELET MORPHOLOGY COMMENT NORMAL (NORMAL)
--- NOTE | 2017-12-09 06:59 | RAD ---
Examination: Chest, PA and lateral views History: Cough Comparison reference 12/05/2017 Findings: Continued normal heart size with clear lungs and pleural spaces. Impression: No significant change or acute abnormality demonstrated. Reported By:
[2017-12-09] MEDS: MUCOMYST 20% 200 MG/ML NEB SCH ×4 (09:15→21:33)
[2017-12-09] MEDS: PULMICORT NEB TX 0.5 MG NEB SCH ×2 (09:15→21:33)
[2017-12-09] MEDS: INDERAL TAB 10 MG PO SCH ×2 (09:39→21:21)
[2017-12-09] MEDS: CYMBALTA PO SCH (09:40)
[2017-12-09] MEDS: ROCEPHIN VIAL 1 GRAM 1 G in NS 100 ML IV + SPIKE MINIBAG* 100 ML IV SCH (09:40)
[2017-12-09] MEDS: LYRICA CAP 100 MG PO SCH ×2 (09:41→21:20)
[2017-12-09] MEDS: TAMIFLU PO SCH ×2 (09:41→21:20)
[2017-12-09] MEDS: TUSSIONEX PENNKINETIC SUSP PO PRN ×2 (09:45→21:21)
[2017-12-09] MEDS: ROBITUSSIN DM PO SCH ×4 (11:12→21:28)
[2017-12-09] MEDS ORDERED: ASTELIN NASAL SPRAY ENOSTRIL ONE (11:22)
[2017-12-09] MEDS: ASTELIN NASAL SPRAY ENOSTRIL SCH ×3 (11:32→21:23)
[2017-12-09] MEDS: FLONASE NASAL SPRAY ENOSTRIL SCH (11:32)
[2017-12-09] MEDS: TORADOL 30 MG VIAL IVP PRN (11:40)
--- NOTE | 2017-12-09 12:12 | CT ---
History: Cough, shortness of breath, and headache. Study: CT sinus without contrast. Comparison: None. Technique: Multiple contiguous axial images of the sinuses without contrast. Coronal/sagittal reforma ts were obtained. Findings: The paranasal sinuses are well-developed and aerated. There is a mild right nasal septum de viation. The ostiomeatal units, sphenoethmoidal recesses, and frontoethmoidal recesses are patent. No mucoperiosteal thickening, nasal polyps or air-fluid levels are seen. Bilateral middle turbinate con juliana bullosa. The orbits are unremarkable. The visualized bones and surrounding soft tissues are unrem arkable. Impression: Normal CT scan of the paranasal sinuses. Reported By:
[2017-12-09] MEDS: VIBRAMYCIN 100 MG in D5W 250 ML IV 250 ML IV SCH ×2 (14:00→21:21)
[2017-12-09] MEDS: FORTAZ or TAZICEF VIAL INJ 2 G in NS 100 ML IV + SPIKE MINIBAG* 100 ML IV SCH ×2 (14:09→21:22)
[2017-12-09] MEDS: NS 1/2 500 ML IV 500 ML IV SCH (14:56)
[2017-12-09] MEDS ORDERED: VIBRAMYCIN IV ONE (20:54)
[2017-12-09] MEDS ORDERED: NS 250 ML IV 250 ML IV ONE (20:56)
[2017-12-09] MEDS: RESTORIL CAP 30 MG PO PRN (21:20)
[2017-12-10] MEDS: DUONEB 0.5 MG/3 MG NEB SCH ×3 (01:20→09:03)
[2017-12-10] MEDS: FORTAZ or TAZICEF VIAL INJ 2 G in NS 100 ML IV + SPIKE MINIBAG* 100 ML IV SCH (05:51)
[2017-12-10] MEDS: ASTELIN NASAL SPRAY ENOSTRIL SCH (05:54)
[2017-12-10 05:56] LABS: ALANINE AMINOTRANSFERASE 26 Units/L (12-78); ALBUMIN 2.8 g/dL (3.4-5.0); ALKALINE PHOSPHATASE 69 Units/L (46-116); ASPARTATE AMINO TRANSFERASE 10 Units/L (15-37); BLOOD UREA NITROGEN 11 mg/dL (7-18); CALCIUM 7.6 mg/dL (8.5-10.1); CARBON DIOXIDE 28.7 mmol/L (21-32); CHLORIDE 105 mmol/L (98-107); COR CA(FOR HYPOALB) 8.6 mg/dL (8.5-10.1); CREATININE 0.72 mg/dL (0.55-1.02); SODIUM 142 mmol/L (136-145); TOTAL PROTEIN 6.2 g/dL (6.4-8.2); eGFR NON BLACK RACES > 60 (>60)
[2017-12-10] MEDS: TORADOL 30 MG VIAL IVP PRN (05:58)
[2017-12-10 06:12] LABS: BASOPHILS % (AUTO) 0.2 % (0.2-1.0); EOSINOPHILS # (AUTO) 0.2 x10^3/uL (0.0-0.2); HEMATOCRIT 39.5 % (36.0-47.0); HEMOGLOBIN 13.6 g/dL (12.0-16.0); LYMPHOCYTES # (AUTO) 7.9 X10^3/uL (1.3-2.9); LYMPHOCYTES % (AUTO) 52.2 % (21.0-51.0); MEAN CORPUSCULAR HEMOGLOBIN 26.6 pg (27.0-34.0); MEAN CORPUSCULAR HGB CONC 34.4 g/dL (33.0-35.0); MEAN CORPUSCULAR VOLUME 77.4 fL (80.0-100.0); MEAN PLATELET VOLUME 8.2 fL (7.4-11.0); MONOCYTES # (AUTO) 0.7 x10^3/uL (0.3-0.8); MONOCYTES % (AUTO) 4.4 % (0.0-13.0); NEUTROPHILS # (AUTO) 6.4 x10^3/uL (2.2-4.8); NEUTROPHILS % (AUTO) 42.2 % (42.0-75.0); PLATELET COUNT 456 X10^3/uL (150.0-450.0); RED BLOOD COUNT 5.11 X10^6/uL (3.5-5.4); RED CELL DISTRIBUTION WIDTH 12.9 % (11.6-16.5); WHITE BLOOD COUNT 15.1 X10^3/uL (3.6-10.0)
[2017-12-10] MEDS: NS 1/2 500 ML IV 500 ML IV SCH ×3 (07:09→09:25)
[2017-12-10 07:11] LABS: PLATELET MORPHOLOGY COMMENT NORMAL (NORMAL)
[2017-12-10 07:53] VITALS: BP 130/78
[2017-12-10] MEDS: INDERAL TAB 10 MG PO SCH (08:20)
[2017-12-10] MEDS: TAMIFLU PO SCH (08:21)
[2017-12-10] MEDS: ROBITUSSIN DM PO SCH (08:21)
[2017-12-10] MEDS: LYRICA CAP 100 MG PO SCH (08:21)
[2017-12-10] MEDS ORDERED: DIFLUCAN 200 MG IV PREMIX* 200 MG/100 ML BAG IV SCH (09:00)
[2017-12-10] MEDS: PULMICORT NEB TX 0.5 MG NEB SCH (09:03)
[2017-12-10] MEDS: MUCOMYST 20% 200 MG/ML NEB SCH (09:03)
[2017-12-10] MEDS: VIBRAMYCIN 100 MG in D5W 250 ML IV 250 ML IV SCH (09:32)
[2017-12-10] MEDS: CYMBALTA PO SCH (09:32)
[2017-12-10] MEDS: FLONASE NASAL SPRAY ENOSTRIL SCH (09:32)
[2017-12-10] MEDS ORDERED: PNEUMOVAX 23 IM ONE (09:47)
[2017-12-12] MEDS ORDERED: VITAMIN D3 PO SCH (08:15)
== END 2017-12-10 10:20 | disposition home or self-care (01) ==
LOC: MED/SURG 12:05 → UNDOADMIN 12:05 → MED/SURG 14:00 → UNDOADMIN 14:00 → UNDODISIN 12-10 10:20
PROVIDERS: ADMIT Internal Medicine; ATTEND Internal Medicine
DX: Z23 Encounter for immunization; J20.8 Acute bronchitis due to other specified organisms; R06.02 Shortness of breath; J10.1 Influenza due to other identified influenza virus with other respiratory manifestations; R73.09 Other abnormal glucose
CPT/HCPCS: 36415; 70486; 71020; 71046; 80053; 83036; 83735; 84132; 85025; 87040; 87070; 87205; 94640; 94669; 94760; A4218; A4222; G9035; G0378; J0456; J0696; J0713; J1450; J1885; J2930; J3490; J7050; J7060; J7608; J7620; J7626; S0195